=== PATIENT | male | born 1945 | race African-American/Black ===

== ENCOUNTER 2018-03-11 12:33 | Emergency (ER) | payer OTHER ==
[~2018-03-11] VITALS: Ht 182.9 cm; Wt 109.8 kg
[~2018-03-11 12:33] MED LIST: Ecotrin PO; Lipitor PO; Lopressor PO; Plavix PO; Protonix PO; Zestril,Prinivil PO
[2018-03-11] MEDS ORDERED: XARELTO20 MG PO (12:40)
[2018-03-11] MEDS ORDERED: ROSUVASTATIN CA10 MG PO (12:40)
[2018-03-11] MEDS ORDERED: VALSARTAN80 MG PO (12:40)
[2018-03-11] MEDS ORDERED: CO Q-1010 MG PO (12:41)
[2018-03-11] MEDS ORDERED: ASPIR 8181 M1 PO (12:41)
[2018-03-11 13:26] LABS: HEMATOCRIT 30.7 % (38.0-50.0); HEMOGLOBIN 10.2 G/DL (12.5-16.6); MCH 29.5 PG (29.0-34.0); MCHC 33.2 G/DL (30.0-36.0); MCV 88.7 FL (86-99); PLATELET COUNT 180 K/uL (156-360); RBC DIS.WIDTH-CV 14.4 % (11.8-14.6); RBC DIS.WIDTH-SD 46.1 % (39-53); RED BLOOD COUNT 3.46 M/uL (4.00-5.50); WHITE BLOOD COUNT 6.6 K/uL (4.1-10.2)
[2018-03-11 13:40] LABS: CHLORIDE 113 mEq/L (99-109); POTASSIUM 4.5 mEq/L (3.7-5.4); SODIUM 142 mEq/L (136-147)
[2018-03-11 13:41] LABS: GLUCOSE 107 mg/dL (70-99)
[2018-03-11 13:45] LABS: CREATININE 1.4 mg/dL (0.6-1.3); GFR ESTIMATE (CALCULATED) > 59 mL/min/ (58.99-99999)
[2018-03-11 13:46] LABS: UREA NITROGEN (BUN) 30 mg/dL (9-23)
[2018-03-11 14:57] LABS: TROP-I INTERPRETATION NEGATIVE; TROPONIN-I < 0.01 ng/mL (0.0-0.30)
[2018-03-11 16:02] VITALS: BP 101/70
== END 2018-03-11 16:08 | disposition home or self-care (01) ==
LOC: EME 12:33
PROVIDERS: Emergency Medicine
DX: R55 Syncope and collapse (principal); I49.8 Other specified cardiac arrhythmias; R94.31 Abnormal electrocardiogram [ECG] [EKG]; I10 Essential (primary) hypertension; E78.5 Hyperlipidemia, unspecified; Z79.01 Long term (current) use of anticoagulants; Z79.82 Long term (current) use of aspirin; Z95.5 Presence of coronary angioplasty implant and graft; Z87.891 Personal history of nicotine dependence; Z90.49 Acquired absence of other specified parts of digestive tract; Z85.9 Personal history of malignant neoplasm, unspecified
CPT/HCPCS: 71046; 80048; 84484; 85027; 93005; 99281; 99285; J7030